=== PATIENT | female | born 1950 | race African-American/Black ===

== ENCOUNTER 2024-10-10 11:18 | Emergency (ER) | payer MEDICARE, MEDICAID ==
[~2024-10-10] VITALS: Ht 167.6 cm; Wt 110.0 kg
[~2024-10-10 11:18] MED LIST: AMLO5TAB4 PO; AMLO5TAB88 PO; ASPI-1079 PO; ASPI-1160 PO; ATOR10TA PO; HYDR-1348 PO; LASIX PO; LOSA-412 PO; OMEP20CA14 PO; OMEP20CA4 PO; SIMV10TA97 PO
[2024-10-10 11:23] VITALS: O2SAT 96
[2024-10-10 12:20] LABS: BASOPHILS % 0.4 % (0.0-2.0); EOSINOPHILS % 0.3 % (0.0-5.0); HEMATOCRIT. 40.2 % (36.0-48.0); HEMOGLOBIN. 12.8 g/dL (12.0-16.0); MEAN CORPUSCULAR HEMOGLOBIN 26.5 pg (28.0-32.0); MEAN CORPUSCULAR HGB CONC 31.8 g/dL (31.0-37.0); MEAN CORPUSCULAR VOLUME 83.3 fL (81.0-99.0); MEAN PLATELET VOLUME 7.1 fl (7.4-10.4); MONOCYTES % 4.4 % (2.0-8.0); NEUTROPHILS % 72.9 % (40.0-76.0); PLATELET 247 x1000/uL (130-400); RED BLOOD CELL COUNT 4.82 mill/uL (4.2-5.4); RED CELL DISTRIBUTION WIDTH 14.9 % (11.6-14.6); WHITE BLOOD COUNT 6.9 x1000/uL (4.5-11.0)
[2024-10-10 12:28] LABS: CHLORIDE 107 mEq/L (98-107); POTASSIUM 3.6 mEq/L (3.5-5.1); SODIUM 140 mEq/L (136-145)
[2024-10-10 12:29] LABS: CARBON DIOXIDE 29 mEq/L (21-32)
[2024-10-10 12:30] LABS: CALCIUM 9.4 mg/dL (8.7-10.4)
[2024-10-10 12:34] LABS: CREATININE 1.1 mg/dL (0.6-1.0); GLUCOSE 99 mg/dL (70-105); UREA NITROGEN BLOOD 16 mg/dL (9-23)
[2024-10-10 12:35] LABS: TROPONIN I HIGH SENSITIVITY 5 ng/L (3.0-34)
[2024-10-10] MEDS: ACETAMINOPHEN 325MG TABLET PO ONE (12:39)
[2024-10-10 12:45] VITALS: BP 149/84; PULSE 66; RESP 16; TEMP 37.00296; O2SAT 96
== END 2024-10-10 12:57 | disposition home or self-care (01) ==
LOC: ER 11:18
DX: I10 Essential (primary) hypertension (principal); Z79.899 Other long term (current) drug therapy; Z79.82 Long term (current) use of aspirin; Z88.0 Allergy status to penicillin
CPT/HCPCS: 36415; 71045; 80048; 83880; 84484; 85025; 93005; 99285